=== PATIENT | female | born 1965 | race Caucasian/White ===

== ENCOUNTER 2021-01-28 14:51 | Outpatient (CLI) | payer OTHER, SELFPAY ==
--- NOTE | 2021-01-28 14:58 | USCV_ITS ---
Bernadine Rendon Age: 55 Gender: F : 1965 Exam Date: 01/28/2021 15:14 Ordering Phys: Prakash Srivastava PA-C XX Technologist: Buffy Amaya Exam Location: [facility] [place]_ Indication: RT ARM PAIN HISTORY: NEW ONSET OF PAIN X 5 DAYS, NO TRAUMA PROCEDURES: Venous duplex imaging was performed in only the right upper extremity. The following venous structures were evaluated: internal jugular vein, subclavian vein, axillary vein, and brachial veins. In addition, the basilic vein, cephalic vein, radial vein, and ulnar vein. FINDINGS: Normal 2-D, color Doppler and phasicity noted in ther right upper extremity venous system extending from the right internal jugular vein through the main forearm. No thrombosis or occlusion noted. CONCLUSIONS No right upper extremity DVT. Dr. Radha Page DO (Electronically Signed) Final Date: 28 January 2021 16:14 Amended: 28 January 2021 16:16 C
== END 2021-01-28 14:52 | disposition home or self-care (01) ==
LOC: RAD 14:56
PROVIDERS: PCP Family Medicine; Visit Provider Physician Assistant Medical
DX: M79.601 Pain in right arm (principal)
CPT/HCPCS: 93971